=== PATIENT | female | born 1935 | race Caucasian/White ===

== ENCOUNTER 2017-06-28 17:45 | Observation (INO) | payer MEDICARE, BC ==
[~2017-06-28] VITALS: Ht 152.4 cm; Wt 68.2 kg
[2017-06-28 18:06] VITALS: Ht 152.4 cm; Wt 68.2 kg
[2017-06-28] MEDS ORDERED: TYL500 PO (21:33)
[2017-06-28] MEDS ORDERED: LORA10TA3 PO (21:33)
[2017-06-28] MEDS ORDERED: LOSA50TA6 PO (21:34)
[2017-06-28 21:57] LABS: BASOPHIL # 0.1 10^3/ul (0.0-0.1); BASOPHILS % 0.6 % (0.0-2.0); EOSINOPHILS # 0.3 10^3/ul (0.0-0.5); EOSINOPHILS % 3.7 % (0.0-7.0); HEMOGLOBIN 13.5 g/dl (12.0-16.0); LYMPHOCYTES # 1.2 10^3/ul (0.8-2.9); LYMPHOCYTES % 14.3 % (15.0-51.0); MEAN CORPUSCULAR HEMOGLOBIN 29.2 pg (29.0-33.0); MEAN CORPUSCULAR HGB CONC 32.9 g/dl (32.0-37.0); MEAN CORPUSCULAR VOLUME 88.6 fl (82.0-101.0); MEAN PLATELET VOLUME 12.3 fl (7.4-10.4); MONOCYTE # 0.5 10^3/ul (0.3-0.9); MONOCYTES % 5.7 % (0.0-11.0); NEUTROPHILS % 75.3 % (39.0-77.0); PLATELET COUNT 176 10^3/UL (140-415); RED BLOOD COUNT 4.63 10^6/ul (4.20-5.40)
[2017-06-28 22:07] LABS: ADD UMIC YES; UR AMORPHOUS CRYSTAL FEW /HPF (NONE SEEN); UR ASCORBIC ACID NEGATIVE (NEGATIVE); UR BACTERIA FEW /HPF (NONE SEEN); UR BILIRUBIN (Dip) NEGATIVE (NEGATIVE); UR BLOOD (Dip) NEGATIVE (NEGATIVE); UR CLARITY CLOUDY (CLEAR); UR COLOR YELLOW (YELLOW); UR GLUCOSE (Dip) NEGATIVE (NEGATIVE); UR KETONES (Dip) TRACE mg/dL (NEGATIVE); UR LEUKOCYTE ESTERASE (Dip) NEGATIVE Leu/ul (NEGATIVE); UR NITRITE (Dip) NEGATIVE (NEGATIVE); UR RBC 3 /HPF (0-5); UR SPECIFIC GRAVITY (Dip) 1.016 (1.003-1.030); UR TOTAL PROTEIN (Dip) NEGATIVE (NEGATIVE); UR UROBILINOGEN (Dip) NEGATIVE (NEGATIVE)
[2017-06-28 22:20] LABS: ALBUMIN 4.8 g/dl (3.3-4.9); ALBUMIN/GLOBULIN RATIO 1.17; BILIRUBIN,INDIRECT 0.6 mg/dl (0-1.1); BILIRUBIN,TOTAL 0.6 mg/dl (0.2-1.3); CALCIUM 10.2 mg/dl (8.4-10.2); CREATININE 0.74 mg/dl (0.44-1.00); POTASSIUM 4.1 mmol/L (3.5-5.1); TOTAL PROTEIN 8.9 g/dl (6.1-8.1)
--- NOTE | 2017-06-28 22:23 | ERA ---
ER Documentation Chief Complaint Date/Time DATE: 06/28/17 TIME: 22:22 Chief Complaint ABDOMINAL PAIN HPI The patient is a 82-year-old female, presenting to the ER because of diffuse abdominal pain today, was for the last 6 hours. She has similar symptoms previously and complains of constipation. She was seen in the ER about 2 months ago where she was treated with enema with good response, she denies headache, neck pain, chest pain, dyspnea, dysuria, diarrhea. She does not smoke or drink Past medical history: Hypertension, dyslipidemia Past surgical history: Appendectomy, cholecystectomy, partial left breast mastectomy due to cancer and was treated with radiation ROS All systems reviewed and are negative except as per history of present illness. Medications Home Meds Reported Medications Losartan Potassium* (Losartan Potassium*) 50 Mg Tablet, 50 MG PO DAILY, TAB 06/28/17 Acetaminophen* (Tylenol*) 500 Mg Tab, 500 MG PO DAILY Y for MILD PAIN LEVEL 1-3 , TAB 06/28/17 Loratadine* (Loratadine*) 10 Mg Tablet, 10 MG PO DAILY, #30 TAB 06/28/17 Allergies Allergies: Coded Allergies: aspirin (Verified Allergy, Unknown, 06/28/17) azelastine (Unverified Allergy, Unknown, 06/28/17) azithromycin (Verified Allergy, Unknown, 06/28/17) butorphanol (Unverified Allergy, Unknown, 06/28/17) codeine (Unverified Allergy, Unknown, 06/28/17) enzymes,digestive (Unverified Allergy, Unknown, 06/28/17) erythromycin base (Unverified Allergy, Unknown, 06/28/17) hydromorphone (Unverified Allergy, Unknown, 06/28/17) ibuprofen (Unverified Allergy, Unknown, 06/28/17) methylprednisolone (Unverified Allergy, Unknown, 06/28/17) pancreatin (Unverified Allergy, Unknown, 06/28/17) penicillin G (Verified Allergy, Unknown, 06/28/17) prochlorperazine (Unverified Allergy, Unknown, 06/28/17) theophylline (Verified Allergy, Unknown, 06/28/17) Uncoded Allergies: ZOFRAN (Allergy, Unknown, 06/28/17) PMhx/Soc Hx Alcohol Use: No Hx Substance Use: No Hx Tobacco Use: No Smoking Status: Never smoker Physical Exam Vitals Vital Signs Date Time Temp Pulse Resp B/P Pulse Ox O2 Delivery O2 Flow Rate FiO2 06/29/17 01:28 98.6 100 20 146/70 98 Room Air 06/28/17 18:06 97.9 75 18 205/93 99 Physical Exam Const: No acute distress. Very anxious Head: Atraumatic. Eyes: Normal Conjunctiva. ENT: Normal External Ears, Nose and Mouth. Neck: Full range of motion. No meningismus. Resp: Clear to auscultation bilaterally. Cardio: Regular rate and rhythm. Abd: Soft, non distended, hypoactive bowel sounds, diffuse abdominal tenderness, more tenderness on the left side of the abdomen, no rigidity, rebound, CVA tenderness Skin: No petechiae or rashes. Back: No midline or flank tenderness. Ext: No cyanosis, or edema. Neur: Awake and alert. No focal deficit Psych: Normal Mood and Affect. Result Diagram: 06/28/17212906/28/172129 Results 24 hrs Laboratory Tests Test 06/28/17 21:15 06/28/17 21:30 Urine Color YELLOW Urine Clarity CLOUDY Urine pH 8.0 Urine Specific [place] 1.016 Urine Ketones TRACEmg/dL Urine Nitrite NEGATIVEmg/dL Urine Bilirubin NEGATIVEmg/dL Urine Urobilinogen NEGATIVEmg/dL Urine Leukocyte Esterase NEGATIVELeu/ul Urine Microscopic RBC 3/HPF Urine Microscopic WBC 2/HPF Urine Amorphous Crystals FEW/HPF Urine Bacteria FEW/HPF Urine Hemoglobin NEGATIVEmg/dL Urine Glucose NEGATIVEmg/dL Urine Total Protein NEGATIVEmg/dl White Blood Count 8.010^3/ul Red Blood Count 4.6310^6/ul Hemoglobin 13.5g/dl Hematocrit 41.0% Mean Corpuscular Volume 88.6fl Mean Corpuscular Hemoglobin 29.2pg Mean Corpuscular Hemoglobin Concent 32.9g/dl Red Cell Distribution Width 13.0% Platelet Count 90515^3/UL Mean Platelet Volume 12.3fl Neutrophils % 75.3% Lymphocytes % 14.3% Monocytes % 5.7% Eosinophils % 3.7% Basophils % 0.6% Nucleated Red Blood Cells % 0.0/100WBC Neutrophils # 6.010^3/ul Lymphocytes # 1.210^3/ul Monocytes # 0.510^3/ul Eosinophils # 0.310^3/ul Basophils # 0.110^3/ul Nucleated Red Blood Cells # 0.010^3/ul Sodium Level 145mmol/L Potassium Level 4.1mmol/L Chloride Level 101mmol/L Carbon Dioxide Level 27mmol/L Anion Gap 21 Blood Urea Nitrogen 22mg/dl Creatinine 0.74mg/dl Glucose Level 99mg/dl Calcium Level 10.2mg/dl Total Bilirubin 0.6mg/dl Direct Bilirubin 0.00mg/dl Indirect Bilirubin 0.6mg/dl Aspartate Amino Transf (AST/SGOT) 33IU/L Alanine Aminotransferase (ALT/SGPT) 31IU/L Alkaline Phosphatase 69IU/L Total Protein 8.9g/dl Albumin 4.8g/dl Globulin 4.10g/dl Albumin/Globulin Ratio 1.17 Lipase 80U/L Current Medications Medications (Trade) Dose Ordered Sig/Anshul Route PRN Reason Start Time Stop Time Status Last Admin Dose Admin Morphine Sulfate (morphine) 2 mg ONCE ONCE IV 06/28/17 23:30 06/28/17 23:31 DC 06/28/17 23:50 Ondansetron HCl 4 mg 4 mg ONCE STAT IV 06/28/17 23:11 06/28/17 23:13 DC 06/28/17 23:57 Ciprofloxacin/ Dextrose 200 ml @ 200 mls/hr ONCE ONCE IVPB 06/28/17 23:30 06/29/17 00:29 DC 06/29/17 01:11 Metronidazole 100 ml @ 100 mls/hr ONCE ONCE IVPB 06/28/17 23:30 06/29/17 00:29 DC 06/28/17 23:57 Acetaminophen (Ofirmev 1000mg/ 100ml Iv) 100 ml @ 400 mls/hr Q6H PRN IVPB pain/fever 06/29/17 00:30 Haloperidol (Haldol) 0.5 mg Q4H PRN IM nausea 06/29/17 00:30 Lorazepam (Ativan) 0.25 mg Q4H PRN IV anxiety 06/29/17 00:30 Morphine Sulfate 1 mg 1 mg Q1H PRN IV pain 06/29/17 00:30 Potassium Chloride/Dextrose/ Sod Cl (D5-NS + KCl 40 Meq) 1,000 ml @ 100 mls/hr Q10H IV 06/29/17 00:30 06/29/17 01:22 Hydralazine HCl (Apresoline) 10 mg Q4H PRN IV sbp >160 06/29/17 00:30 06/29/17 01:11 Enalaprilat (Vasotec Iv) 0.625 mg Q4H PRN IV sbp>160 06/29/17 00:30 Procedures/[place] [id number] Radiology Main Line: [phone] DIAGNOSTIC IMAGING REPORT Patient: ELIZABETH CHIANG : 1935 Age: 82 Sex: F MR #: [id number] DOS: 06/28/172057 Ordering MD: TABBY MILLS DO Location: E/R Room/Bed: PROCEDURE: CT abdomen and pelvis without contrast. CLINICAL INDICATION: Abdominal pain. Chronic constipation. TECHNIQUE: CT of the abdomen and pelvis without contrast was performed on a multidetector high-resolution CT scanner. Coronal and sagittal reformatted images were obtained from the axial source images. Images were reviewed on a high-resolution PACS workstation. The total exam CTDI equals 7.58 mGy and the total exam DLP equals 376.98 mGy-cm. One or more of the following dose reduction techniques were used: - Automated exposure control. - Adjustment of the mA and/or kV according to patient size. - Use of iterative reconstruction technique. COMPARISON: Abdominal plain film dated 03/03/2008. FINDINGS: Visualized lower thorax: The visualized lung bases are clear. The visualized heart is unremarkable. There is a small hiatal hernia. Hepatobiliary system and spleen: The liver is grossly unremarkable. There is no intra or extrahepatic biliary ductal dilatation. The gallbladder is surgically absent. The spleen is grossly unremarkable. The pancreas is grossly unremarkable. Adrenal glands and genitourinary system: The adrenal glands are grossly unremarkable. There is no nephrolithiasis or hydronephrosis. The urinary bladder is grossly unremarkable. The uterus is retroflexed. The adnexa are grossly unremarkable. Gastrointestinal system: There are distended and fluid-filled small bowel loops extending from the left upper quadrant into the left lower quadrant with associated air fluid levels measuring up to 3.3 cm in diameter relatively decompressed small bowel distally. These findings are suggestive of early small -bowel obstruction. There is no pneumatosis or portal venous gas. There is no bowel wall thickening. The appendix is not identified, but there are no secondary findings of appendicitis. Peritoneum, vascular, and lymphatics: There is no free intraperitoneal air or free fluid. There is no mesenteric or retroperitoneal adenopathy. There are atherosclerotic changes of the aorta, which is nonaneurysmal. Musculoskeletal system and soft tissues: There is moderate multilevel degenerative enthesopathy. There are no concerning osseous lesions. IMPRESSION: 1. Distended and fluid-filled small bowel loops with associated air fluid levels throughout the left hemiabdomen with a transition point in the left lower quadrant and decompressed bowel distal to this region, suggestive of early small-bowel obstruction. No pneumatosis or portal venous gas. 2. Small hiatal hernia. 3. Vascular calcifications consistent with atherosclerosis. RPTAT: HLBP .Octavio Block MD, MD Date Time Electronically viewed and signed by .Octavio Block MD, MD on 06/28/2017 23:12 .P/ CC: TABBY MILLS DO EKG: Read by emergency physician Rate/Rhythm: Normal Sinus Rhythm 81 beats/min QRS, ST, T-waves: No ST elevation, no T inversion mild left atrial enlargement Impression: Abnormal EKG MEDICAL MAKING DECISION: "The patient is a 82-year-old female, presenting to the ER because of acute small bowel obstruction, acute accelerated hypertension. She was treated with Cipro IV, Flagyl IV, morphine 0.5 mg IV 4 for pain and Zofran 4 mg IV 1 for nausea with good response. Her blood pressure improved. I have order for a nasogastric tube, however patient declined. Risks and benefits were explained to the patient The differential diagnoses considered include but are not limited to cystitis, pancreatitis, hepatitis, gastritis, peptic ulcer disease, gastric ulcer, appendicitis, diverticulitis, cholangitis, choledocholithiasis. Consultation: I discussed the patient with the on-call general surgeon Dr. Duff at 11:45 PM, who was made aware of the lab, the treatment, the present condition. He accepted the consult Departure Diagnosis: Primary Impression: Small bowel obstruction Additional Impression: Accelerated hypertension Condition: Stable Comments I discussed the findings with the patient. I discussed the patient with her physician Dr. Wick who was made aware of the lab, the treatment, the patient condition. The patient is admitted to [facility] at 1205 am WILLIAM CHAVEZ MD Jun 28, 2017 22:23
--- NOTE | 2017-06-28 23:12 | RADRPT ---
PROCEDURE: CT abdomen and pelvis without contrast. CLINICAL INDICATION: Abdominal pain. Chronic constipation. TECHNIQUE: CT of the abdomen and pelvis without contrast was performed on a multidetector high-reso lution CT scanner. Coronal and sagittal reformatted images were obtained from the axial source image s. Images were reviewed on a high-resolution PACS workstation. The total exam CTDI equals 7.58 mGy a nd the total exam DLP equals 376.98 mGy-cm. One or more of the following dose reduction techniques were used: - Automated exposure control. - Adjustment of the mA and/or kV according to patient size. - Use of iterative reconstruction technique. COMPARISON: Abdominal plain film dated 03/03/2008. FINDINGS: Visualized lower thorax: The visualized lung bases are clear. The visualized heart is unremarkable. There is a small hiatal hernia. Hepatobiliary system and spleen: The liver is grossly unremarkable. There is no intra or extrahepat ic biliary ductal dilatation. The gallbladder is surgically absent. The spleen is grossly unremarkab le. The pancreas is grossly unremarkable. Adrenal glands and genitourinary system: The adrenal glands are grossly unremarkable. There is no n ephrolithiasis or hydronephrosis. The urinary bladder is grossly unremarkable. The uterus is retrof lexed. The adnexa are grossly unremarkable. Gastrointestinal system: There are distended and fluid-filled small bowel loops extending from the left upper quadrant into the left lower quadrant with associated air fluid levels measuring up to 3. 3 cm in diameter relatively decompressed small bowel distally. These findings are suggestive of ear ly small-bowel obstruction. There is no pneumatosis or portal venous gas. There is no bowel wall th ickening. The appendix is not identified, but there are no secondary findings of appendicitis. Peritoneum, vascular, and lymphatics: There is no free intraperitoneal air or free fluid. There is no mesenteric or retroperitoneal adenopathy. There are atherosclerotic changes of the aorta, which i s nonaneurysmal. Musculoskeletal system and soft tissues: There is moderate multilevel degenerative enthesopathy. Th ere are no concerning osseous lesions. IMPRESSION: 1. Distended and fluid-filled small bowel loops with associated air fluid levels throughout the lef t hemiabdomen with a transition point in the left lower quadrant and decompressed bowel distal to th is region, suggestive of early small-bowel obstruction. No pneumatosis or portal venous gas. 2. Small hiatal hernia. 3. Vascular calcifications consistent with atherosclerosis. RPTAT: HLBP .Octavio Block MD, Date Time Electronically viewed and signed by .Octavio Block MD, on 06/28/2017 23:12 .P/
[2017-06-28] MEDS: morphine 2 MG INJ IV ONE ×2 (23:25→23:50)
[2017-06-28] MEDS: ONDANSETRON 4 MG INJ IV STA ×2 (23:25→23:57)
[2017-06-28] MEDS ORDERED: CIPROFLOXACIN 400MG/D5W 200 ML IVPB ONE (23:30)
[2017-06-28] MEDS ORDERED: metroNIDAZOLE 500 MG/NS (PMX) 100 ML IVPB ONE (23:30)
[2017-06-29] MEDS ORDERED: ENALAPRILAT 1.25 MG INJ IV PRN (00:30)
[2017-06-29] MEDS ORDERED: ACETAMINOPHEN 1000MG/100ML IV 100 ML IVPB PRN (00:30)
[2017-06-29] MEDS ORDERED: hydrALAzine 20 MG INJ IV PRN (00:30)
[2017-06-29] MEDS ORDERED: morphine 2 MG INJ IV PRN (00:30)
[2017-06-29] MEDS ORDERED: HALOPERIDOL 5 MG INJ IM PRN (00:30)
[2017-06-29] MEDS ORDERED: D5-NS + KCL 40 MEQ 1,000 ML IV SCH (00:30)
[2017-06-29] MEDS ORDERED: LORAZEPAM 2 MG INJ IV PRN (00:30)
[2017-06-29 01:28] VITALS: PULSE 100; TEMP 98.6
[2017-06-29 02:18] VITALS: BP 174/75; RESP 18
[2017-06-29 03:05] VITALS: BP 125/58; RESP 20
[2017-06-29] MEDS: D5-NS + KCL 40 MEQ 1,000 ML IV SCH ×3 (04:38→16:42)
[2017-06-29 08:19] VITALS: BP 116/56; RESP 19
--- NOTE | 2017-06-29 11:06 | QN ---
Documentation Comment H&P dict a/p 1. abdo pain, poss related to sbo, now appears resolved, trial of diet JYOTI MENDENHALL MD Jun 29, 2017 11:06
--- NOTE | 2017-06-29 14:00 | HP ---
DATE OF ADMISSION: 06/29/2017 CHIEF COMPLAINT: Abdominal pain. HISTORY OF PRESENT ILLNESS: Patient presented to the emergency room at [facility] with a one-day history of abdominal pain which began on the morning of presentation. The patient was in her usual state of health when she had breakfast and then began to experience abdominal pain. She denied any associated nausea, vomiting, diarrhea, constipation. She in fact did have two bowel motions which she claims are normal "healthy" on the day of presentation. Patient has had numerous bouts of abdominal pain. She has been told in the past either releated to adhesions or to irritable bowel syndrome or both. PAST MEDICAL HISTORY: 1. Significant for breast cancer, status post mastectomy. 2. Hypertension. MEDICATIONS AN OUTPATIENT: 1. Claritin. 2. Tylenol. 3. Cozaar. ALLERGIES: ZOFRAN. ASPIRIN. AZELASTINE. AZITHROMYCIN. . CODEINE. PANCREATIC ENZYMES. DILAUDID. IBUPROFEN. SOLU-MEDROL. PENICILLIN. THEOPHYLLINE. COMPAZINE. SOCIAL HISTORY: Patient lives at home in [place] by herself. Independent with activities of daily living. Children help her with shopping. She uses a cane for ambulation. She does not drive. Denies tobacco, alcohol, illicit drug use. FAMILY HISTORY: Noncontributory. REVIEW OF SYSTEMS: Five systems are reviewed, found not to be revealing. PHYSICAL EXAMINATION: VITAL SIGNS: Blood pressure is 116/56, pulse rate 84, respirations 20, temperature is 98. GENERAL APPEARANCE: In general, pleasant, elderly female, in no acute distress. Alert, oriented x3. HEENT: Normocephalic, atraumatic. Without any scleral icterus or perioral cyanosis. Mucous membranes are moist. NECK: Soft and supple without masses. No bruits. No jugular venous distention. No carotid bruits. CHEST: Clear to auscultation percussion bilaterally. HEART: Regular rate and rhythm. S1-S2. No added sounds. ABDOMEN: Soft, nontender, nondistended, without palpable hepatosplenomegaly. EXTREMITIES: Without clubbing, cyanosis, or edema. SKIN: Without rashes. NEUROLOGICALLY: Grossly intact. LABORATORY STUDIES: Reveal a hemoglobin of 13.5 g/dL, white count of 8000, platelets of 176,000. Sodium 145, potassium 4.1, chloride 101, bicarbonate 27, BUN 22, creatinine 0.74, glucose 99. Liver function tests are unremarkable. UA shows only 2 white blood cells and no other signs of infection. CT scan of the belly shows dilated loops of small bowel consistent with early small bowel obstruction. ASSESSMENT AND PLAN: Patient with abdominal pain. CT scan suggestive of early small bowel obstruction. However, appears symptomatically much improved. At this point in time, we will begin trial of diet. If tolerated, advance and then anticipate discharge to home. Dictated By: Isaac Sutherland MD /hay/diana /Document#: [id number]
[2017-06-29 14:37] VITALS: BP 127/58; RESP 18
[2017-06-29 20:00] VITALS: BP 122/60; RESP 20
--- NOTE | 2017-06-29 20:10 | CONS ---
Date/Time of Note Date/Time of Note DATE: 06/29/17 TIME: 14:09 Assessment/Plan Assessment/Plan Additional Assessment/Plan [facility] INPATIENT CONSULTATION NOTE DATE OF SERVICE: 06/29/2017 PLACE OF SERVICE: [facility], 2 E. ASSESSMENT AND PLAN: A very-pleasant 82-year-old lady with a few comorbidities presenting with viral gastroenteritis and a picture not consistent with small bowel obstruction. No indication for acute surgical intervention. With above assessment, I've recommended the followin. Start oral intake 2. Labs in a.m. 3. Consider discharge home once medically stable 4. Follow-up with primary care physician as an outpatient Thank you very much for having me involved in the care of this very pleasant patient and wonderful family. If you have any questions, please feel free to contact me at [phone]. Nature of presenting problem: Low severity Please note that, given the limited number of diagnoses or management options, the limited amount and/or complexity of data needed to be reviewed, and low to moderate risk of complications and/or morbidity or mortality, this qualifies as low complexity type of decision-making. Disclaimer: Inadvertent spelling and grammatical errors are likely due to EHR/ dictation software use and do not reflect on the quality of delivered patient care. Also, please note that the electronic time recorded on this node does not necessarily reflect the actual time of the visit. Updated clinical summary: A very-pleasant 82-year-old lady admitted through emergency department to [facility] 06/28/2017 with a few comorbidities presenting with viral gastroenteritis and a picture not consistent with small bowel obstruction. Comorbidities: 1. BMI 29.4 2. Multiple allergies 3. Small hiatal hernia. 4. Vascular calcifications consistent with atherosclerosis. 5. Breast cancer, status post left mastectomy 6. Hypertension CONSULTATION REQUESTED BY: Niki Engle MD HISTORY OF PRESENT ILLNESS: The patient is a very pleasant 82-year-old lady with a few comorbidities presenting with 1 day history of abdominal pain. No nausea, vomiting, change in bowel or bladder habits, blood in the stool or urine , or other major issues. Last bowel movement yesterday. Last flatus today. No major issues with nausea or vomiting. Patient has had similar episodes in the past and has had an abdominal operation at [facility] a few years ago without any reported bowel resection. Patient herself believes this to be more related to infectious issues and not to surgical obstruction. No other major complaints during my visit. ALLERGIES: Multiple and listed in the electronic health record system MEDICATIONS Documented in the electronic records and reviewed by me. Please see the electronic records for details, as well as details for inpatient medications which were also reviewed by me. SOCIAL HISTORY: The patient lives by herself.-Tob;-ETOH;-IVDU FAMILY HISTORY: There are no significant medical, surgical or oncologic issues in the family as reported by the patient or reflected in the chart. REVIEW OF SYSTEMS: Other than mentioned above, there were no other pertinent positives or pertinent negatives in an otherwise complete 14 point review of systems. PHYSICAL EXAMINATION GENERAL: The patient appears to be a very pleasant lady of non- descent lying in bed, appearing stated age, and otherwise in no acute distress. BMI: 29.4 VITAL SIGNS: AVSS (please also see auto important data if available as well as the electronic records) HEENT: Normocephalic and atraumatic. Extraocular muscles and hearing are grossly intact bilaterally and symmetrically. Sclerae are nonicteric. Oral cavity is clear; oral mucosa appear to be pink and moist. Dentition: Fair to poor. NECK: Supple. There is no lymphadenopathy or JVD. There is no submental, submandibular or supraclavicular lymphadenopathy. CHEST: Rises symmetrically with each breath; patient is breathing comfortably. There are no audible wheezes, rales or rhonchi on the gross exam. HEART: Pulse is regular and palpable on the right wrist. Capillary refill is normal. Carotid pulses are palpable bilaterally and symmetrically in the neck. EXTREMITIES: Lower extremities contain no pitting edema around the ankles bilaterally and symmetrically. ABDOMEN: Abdomen is soft, nontender and nondistended. No evidence of ascites, organomegaly, caput medusae, engorged subcutaneous veins, or other abnormalities. There are no peritoneal signs or guarding. Upper midline incision without any evidence of erythema edema discharge hernia and well- healed. SKIN: Appears to be pink and feels warm to touch. NEUROLOGIC: Awake, alert, and follows commands appropriately. LABORATORY DATA: See below IMAGING: See electronic chart. Please note that I've personally reviewed all pertinent available images and I agree in general with their overall reported findings. Abdominal and pelvic CT scan 06/28/2017 [facility] IMPRESSION: 1. Distended and fluid-filled small bowel loops with associated air fluid levels throughout the left hemiabdomen with a transition point in the left lower quadrant and decompressed bowel distal to this region, suggestive of early small-bowel obstruction. No pneumatosis or portal venous gas. 2. Small hiatal hernia. 3. Vascular calcifications consistent with atherosclerosis. Consultation Date/Type/Reason Admit Date/Time Jun 29, 2017 at 00:16 Social History Smoking Status: Never smoker Exam/Review of Systems Vital Signs Vitals Vital Signs Date Time Temp Pulse Resp B/P Pulse Ox O2 Delivery O2 Flow Rate FiO2 06/29/17 14:37 98.3 74 18 127/58 97 06/29/17 01:28 Room Air Intake and Output 06/28/17 06/28/17 06/29/17 15:00 23:00 07:00 Intake Total 50 ml Balance 50 ml Results Result Diagram: 06/28/17212906/28/172129 Results 24 hrs Laboratory Tests Test 06/28/17 21:15 06/28/17 21:30 Urine Color YELLOW Urine Clarity CLOUDY A Urine pH 8.0 Urine Specific [place] 1.016 Urine Ketones TRACE A Urine Nitrite NEGATIVE Urine Bilirubin NEGATIVE Urine Urobilinogen NEGATIVE Urine Leukocyte Esterase NEGATIVE Urine Microscopic RBC 3 Urine Microscopic WBC 2 Urine Amorphous Crystals FEW A Urine Bacteria FEW A Urine Hemoglobin NEGATIVE Urine Glucose NEGATIVE Urine Total Protein NEGATIVE White Blood Count 8.0 Red Blood Count 4.63 Hemoglobin 13.5 Hematocrit 41.0 Mean Corpuscular Volume 88.6 Mean Corpuscular Hemoglobin 29.2 Mean Corpuscular Hemoglobin Concent 32.9 Red Cell Distribution Width 13.0 Platelet Count 176 Mean Platelet Volume 12.3 H Neutrophils % 75.3 Lymphocytes % 14.3 L Monocytes % 5.7 Eosinophils % 3.7 Basophils % 0.6 Nucleated Red Blood Cells % 0.0 Neutrophils # 6.0 Lymphocytes # 1.2 Monocytes # 0.5 Eosinophils # 0.3 Basophils # 0.1 Nucleated Red Blood Cells # 0.0 Sodium Level 145 H Potassium Level 4.1 Chloride Level 101 Carbon Dioxide Level 27 Anion Gap 21 H Blood Urea Nitrogen 22 H Creatinine 0.74 Glucose Level 99 Calcium Level 10.2 Total Bilirubin 0.6 Direct Bilirubin 0.00 Indirect Bilirubin 0.6 Aspartate Amino Transf (AST/SGOT) 33 Alanine Aminotransferase (ALT/SGPT) 31 Alkaline Phosphatase 69 Total Protein 8.9 H Albumin 4.8 Globulin 4.10 H Albumin/Globulin Ratio 1.17 Lipase 80 Medications Medications Current Medications Acetaminophen (Ofirmev 1000mg/ 100ml Iv) 100 ml @ 400 mls/hr Q6H PRN IVPB pain /fever; Start 06/29/17 at 00:30 Haloperidol (Haldol) 0.5 mg Q4H PRN IM nausea; Start 06/29/17 at 00:30 Lorazepam (Ativan) 0.25 mg Q4H PRN IV anxiety; Start 06/29/17 at 00:30 Morphine Sulfate (morphine) 1 mg Q1H PRN IV pain Last administered on 06/29/17 04:44; Admin Dose 1 MG; Start 06/29/17 at 00:30 Hydralazine HCl (Apresoline) 10 mg Q4H PRN IV sbp >160 Last administered on 06/29 01:11; Admin Dose 10 MG; Start 06/29/17 at 00:30 Enalaprilat 0.625 mg 0.625 mg Q4H PRN IV sbp>160; Start 06/29/17 at 00:30 Potassium Chloride/Dextrose/ Sod Cl (D5-NS + KCl 40 Meq) 1,000 ml @ 100 mls/hr Q10H IV Last administered on 06/29/17 16:42; Admin Dose 100 MLS/HR; Start at 03:53 NICKY PHELPS M.D. Jun 29, 2017 20:09
[2017-06-30 02:00] VITALS: BP 144/67; RESP 20
[2017-06-30] MEDS: D5-NS + KCL 40 MEQ 1,000 ML IV SCH ×2 (02:51→09:53)
[2017-06-30 08:18] VITALS: BP 141/65; RESP 19
--- NOTE | 2017-06-30 11:37 | PN ---
Date/Time of Note Date/Time of Note DATE: 06/30/17 TIME: 11:36 Assessment/Plan VTE Prophylaxis VTE Prophylaxis Intervention: other Lines/Catheters IV Catheter Type (from Nrsg): Peripheral IV Urinary Cath still in place: No Assessment/Plan Assessment/Plan gi: paroxysmal abdo pain, improved, toleraing diet, d/c home Subjective 24 Hr Interval Summary Free Text/Dictation no complaints, tolerating diet, abdo pain much improved Exam/Review of Systems Vital Signs Vitals Vital Signs Date Time Temp Pulse Resp B/P Pulse Ox O2 Delivery O2 Flow Rate FiO2 06/30/17 08:18 97.7 68 19 141/65 96 06/29/17 01:28 Room Air Intake and Output 06/29/17 06/29/17 06/30/17 15:00 23:00 07:00 Intake Total 800 ml 1350 ml Balance 800 ml 1350 ml Exam nad, soft nt, ctab Results Result Diagram: 06/28/17212906/28/170 Medications Medications Current Medications Acetaminophen (Ofirmev 1000mg/ 100ml Iv) 100 ml @ 400 mls/hr Q6H PRN IVPB pain /fever; Start 06/29/17 at 00:30 Haloperidol (Haldol) 0.5 mg Q4H PRN IM nausea; Start 06/29/17 at 00:30 Lorazepam (Ativan) 0.25 mg Q4H PRN IV anxiety; Start 06/29/17 at 00:30 Morphine Sulfate (morphine) 1 mg Q1H PRN IV pain Last administered on 06/29/17 04:44; Admin Dose 1 MG; Start 06/29/17 at 00:30 Hydralazine HCl (Apresoline) 10 mg Q4H PRN IV sbp >160 Last administered on 06/29 01:11; Admin Dose 10 MG; Start 06/29/17 at 00:30 Enalaprilat 0.625 mg 0.625 mg Q4H PRN IV sbp>160; Start 06/29/17 at 00:30 Potassium Chloride/Dextrose/ Sod Cl (D5-NS + KCl 40 Meq) 1,000 ml @ 100 mls/hr Q10H IV Last administered on 06/30/17 02:51; Admin Dose 100 MLS/HR; Start 8/5/ 17 at 03:53 JYOTI MENDENHALL MD Jun 30, 2017 11:37
--- NOTE | 2017-06-30 11:40 | PDOCDIS ---
Discharge Instructions CONDITION Patient Condition: Good HOME CARE INSTRUCTIONS: Diet Instructions: RegularSpecial Diet: full liquid ACTIVITY: Activity Restrictions: No Restrictions FOLLOW UP/APPOINTMENTS Follow-up Plan 1. follow up with primary care in 1 week JYOTI MENDENHALL MD Jun 30, 2017 11:39
--- NOTE | 2017-06-30 13:15 | DS ---
DATE OF ADMISSION: 06/29/2017 DATE OF DISCHARGE: DISCHARGE DIAGNOSIS: Generalized abdominal pain, likely functional versus adhesion versus other, resolved. HOSPITAL COURSE: Ms. Marshall presents to the emergency room at [facility] with sudden onset of abdominal pain, which she has had on numerous prior occasions. She feels this is most likely related either to adhesions or to irritable bowel syndrome, which is much more likely scenario than is the small- bowel obstruction suggested by her CT scan. She was seen and evaluated, admitted to the hospital, observed overnight, commenced on diet and tolerates advanced to regular and still tolerating and at this time is deemed stable for discharge to home. DISCHARGE MEDICATIONS: The patient is asked to continue the following medicines without changes. 1. Claritin 10 mg daily. 2. Cozaar 50 mg daily. 3. Tylenol 500 mg p.r.n. DISCHARGE DISPOSITION: Home. DISCHARGE ACTIVITY: Increase in physical activity as tolerated. Discharge diet, regular. Discharge followup with primary care physician 1-2 weeks' time. Dictated By: Isaac Sutherland MD /hay/ /Document#: [id number]
== END 2017-06-30 14:20 | disposition home health service (06) ==
LOC: E/R 17:45 → INTOOBSV 06-29 00:16 → PP2 06-29 00:16
PROVIDERS: ADMIT Legal Medicine; ATTEND Legal Medicine
DX: R10.84 Generalized abdominal pain (principal); Z85.3 Personal history of malignant neoplasm of breast; I10 Essential (primary) hypertension; Z90.12 Acquired absence of left breast and nipple; K44.9 Diaphragmatic hernia without obstruction or gangrene; I70.90 Unspecified atherosclerosis
CPT/HCPCS: 36415; 74176; 80053; 81001; 83690; 85025; 87081; 93005; 96374; 96375; 97162; 99285; G0378; J0360; J0744; J2270; J2405; J3480; 99217